=== PATIENT | female | born 1940 | race Caucasian/White ===

== ENCOUNTER 2020-01-01 08:48 | Outpatient (CLI) | payer MEDICARE, SELFPAY ==
--- NOTE | ~2020-01-01 | XR_ITS ---
EXAMINATION: XR chest 2V 01/01/2020 09:04 INDICATION: Shortness of breath. Dyspnea with exertion. PROCEDURE: PA and lateral views of the chest COMPARISON: Comparison to multiple prior studies sequentially, with oldest reviewed study dated 12/2011. FINDINGS: The lungs are clear. The cardiomediastinal silhouette is within normal limits. There are no pleural effusions. There is no pneumothorax suspected. There are cholecystectomy clips. IMPRESSION: 1: NO ACUTE CARDIOPULMONARY DISEASE. Reviewed, dictated and finalized at location A.
[2020-01-01 11:08] LABS: Basophils Absolute Auto 0.1 K/mm3 (0.0-0.1); Basophils Percent Auto 0.8 % (0.2-1.2); Eosinophils Absolute Auto 0.3 K/mm3 (0-0.3); Eosinophils Percent Auto 4.9 % (0-4.4); Hematocrit 38.8 % (37.0-47.0); Hemoglobin 12.6 g/dL (12.0-15.0); Immature Granulocyte Absolute 0.03 K/mm3 (0.00-0.031); Immature Granulocyte Percent A 0.5 % (0-0.5); Lymphocytes Absolute Auto 1.51 K/mm3 (0.9-3.2); Lymphocytes Percent Auto 24.9 % (18.3-44.2); Mean Corpuscular HGB Conc 32.5 g/dl (32-36); Mean Corpuscular Volume 98.5 fl (80-100); Monocytes Absolute Auto 0.5 K/mm3 (0.1-0.6); Monocytes Percent Auto 8.1 % (2.6-8.5); Neutrophils Absolute Auto 3.7 K/mm3 (1.3-6.7); Neutrophils Percent Auto 60.8 % (45.5-73.1); Platelet Count Result 218 k/mm3 (150-375); Red Blood Count 3.94 M/mm3 (4.2-5.4); Red Cell Distribution Width 13.8 % (11.5-14.5); White Blood Count 6.1 K/mm3 (4.5-10.0)
[2020-01-01 11:24] LABS: Blood Urea Nitrogen 22 mg/dL (7-17); Calcium 9.6 mg/dL (8.4-10.2); Carbon Dioxide 26 mmol/L (22-30); Chloride 107 mmol/L (98-107); Cholesterol 240 mg/dL (0-200); Estimated Glomerular Filt Rate 48; Glucose 99 mg/dL (65-105); HDL Direct 64 mg/dL; Potassium 4.3 mmol/L (3.4-5.0); Sodium 140 mmol/L (137-145); Triglycerides 132 mg/dL (<150)
[2020-01-01 11:35] LABS: LDL Cholesterol Direct 131 mg/dL
== END 2020-01-01 08:49 | disposition home or self-care (01) ==
PROVIDERS: PCP Family Medicine; Visit Provider Internal Medicine Cardiovascular Disease
DX: R06.09 Other forms of dyspnea (principal); R06.02 Shortness of breath; E78.5 Hyperlipidemia, unspecified
CPT/HCPCS: 36415; 71046; 80048; 80061; 85025

== ENCOUNTER 2020-01-04 12:20 | Outpatient (CLI) | payer MEDICARE, SELFPAY ==
--- NOTE | 2020-01-07 14:09 | WPDPFTINT ---
PFT Interpretation PFT Interpretation: DOS: 01/04/2020 REQUESTING: Dr. Dodd REASON FOR TESTING: Dyspnea on exertion PULMONARY FUNCTION TESTS Results are reproducible. Spirometry: FEV1 94%, normal. FVC 91%. FEV1% is 69%, mildly decreased however adjusted for age, this is normal. CAL41-78% is 45%, low. No bronchodilator was given. Lung volumes: TLC is 88%, normal. RV is 88%, normal. No air trapping. Airway resistance is 152%, mildly increased. Diffusion: DLCO is 72%, mildly decreased. Flow volume loop: Mild scooping of the expiratory limb. IMPRESSION: Mild airflow obstruction, mainly in the small airways. Mild increase in airway resistance. Mild diffusion impairment. A trial of bronchodilator can be considered. Sydney Lee MD
== END 2020-01-04 12:21 | disposition home or self-care (01) ==
PROVIDERS: PCP Family Medicine; Visit Provider Internal Medicine Cardiovascular Disease
DX: R06.09 Other forms of dyspnea (principal); R94.2 Abnormal results of pulmonary function studies
CPT/HCPCS: 94375; 94726; 94729

== ENCOUNTER 2020-05-16 09:33 | Outpatient (CLI) | payer MEDICARE, SELFPAY ==
--- NOTE | ~2020-05-16 | MM_ITS ---
EXAMINATION: MM screening maría BI w rosemary HISTORY: Screening mammogram TECHNIQUE: Craniocaudal and mediolateral oblique 3-D tomosynthesis images were obtained and synthetic 2-D images were generated. CAD analysis was submitted and interpreted. COMPARISON: 05/14/2019 bilateral digital screening mammogram 05/12/2018 diagnostic right digital mammogram and complete right breast ultrasound 05/09/2018, 05/06/2017 bilateral digital screening mammogram examinations BREAST PARENCHYMAL COMPOSITION: There are scattered areas of fibroglandular density. FINDINGS: Numerous bilateral benign calcifications are again noted. There is no evidence of suspiciou s mass, calcification, or architectural distortion to suggest malignancy in either breast. There has been no suspicious interval change. IMPRESSION: 1. No mammographic evidence of malignancy. 2. Recommend routine screening mammography in one year. BI-RADS Category 2: Benign finding(s). Reviewed, dictated and finalized at location A.
== END 2020-05-16 09:34 | disposition home or self-care (01) ==
LOC: ANHIMG 09:38
PROVIDERS: PCP Family Medicine; Visit Provider Family Medicine
DX: Z12.31 Encounter for screening mammogram for malignant neoplasm of breast (principal)
CPT/HCPCS: 77063; 77067

== ENCOUNTER 2021-06-16 10:12 | Outpatient (CLI) | payer MEDICARE, SELFPAY ==
--- NOTE | ~2021-06-16 | MM_ITS ---
EXAMINATION: MM screening maría BI w rosemary HISTORY: Screening mammogram TECHNIQUE: Craniocaudal and mediolateral oblique 3-D tomosynthesis images were obtained and synthetic 2-D images were generated. CAD analysis was submitted and interpreted. COMPARISON: 05/16/2020, 05/14/2019, 05/12/2018, 05/09/2018 BREAST PARENCHYMAL COMPOSITION: There are scattered areas of fibroglandular density. FINDINGS: Scattered benign-appearing calcifications are present. There is no evidence of suspicious m ass, calcification, or architectural distortion to suggest malignancy in either breast. There has bee n no suspicious interval change. IMPRESSION: 1. No mammographic evidence of malignancy. 2. Recommend routine screening mammography while the patient remains in good health. BI-RADS Category 2: Benign finding(s). Reviewed, dictated and finalized at location A. REDUCTION TECHNICIAN IMPRESSION: 1. No mammographic evidence of malignancy. 2. Recommend routine screening mammography while the patient remains in good he alth. BI-RADS Category 2: Benign finding(s).
== END 2021-06-16 10:13 | disposition home or self-care (01) ==
LOC: ANHIMG 10:15
PROVIDERS: PCP Family Medicine; Visit Provider Family Medicine
DX: Z12.31 Encounter for screening mammogram for malignant neoplasm of breast (principal)
CPT/HCPCS: 77063; 77067

== ENCOUNTER 2021-07-28 01:03 | Day surgery (SDC) | payer MEDICARE, SELFPAY ==
[2021-07-21 14:55] VITALS: BMI 26.5
--- NOTE | 2021-07-21 15:22 | PC.NURSE ---
Report to the Outpatient Waiting Room, entrance under the green pavilion located off [facility], at time _0900_ on date _07/28/20__. OR Time: ____1100____. - You and your visitor will be asked a series of questions to screen for COVID 19 for your protection. - A mask is required within the hospital. - NO visitors is allowed at this time. Patient visitors will be guided where to wait when not with patient. Preoperative COVID Testing Requirements: No COVID Test needed if: (proof is required; if not received patient will have Rapid Test prior to entry) - Patient has received COVID Vaccine at least 14 days prior to procedure date or - Patient has positive COVID test result within last 90 days of surgery date. COVID Test needed if above criteria is not met If not COVID vaccinated a COVID test must be conducted within 72 hours of surgery and patient is asked to isolate self from time of testing until procedure. You will go to the [facility] for your COVID testing. The [facility] site is located at the corner of [address] from [facility]. You will only be called if COVID results are positive and your surgeon may reschedule your elective surgery date. Patients may have clear liquids (water, carbonated beverages, clear teas, apple juice) until 3 hours prior to surgery with a maximum of 20 ounces. (0800 AM) - No food from midnight until time of surgery - Infants may have breast milk until 4 hours before surgery, infant formula 6 hours prior to surgery. - Children will be allowed to drink immediately following surgery. If applicable, please bring a bottle or sippy cup to assist with drinking. Juice, water, soda, and popsicles are readily available. For infants on formula, please bring formula the day of surgery. Pacifiers are allowed. Take the following medications with a SIP of water the morning of surgery: ____SOTALOL Medications to discontinue per physician __CALL DR DUENAS'S OFFICE REGARDING XARELTO Date to take last dose_FOR CALCIUM & VIT D3 - 07/24/21 Please no make-up, nail mauritian, hairspray, perfume, deodorant, or body powder the day of surgery. No jewelry (including any body piercings) or valuables the day of surgery, leave them at home. Please take a shower or bath the night before, or the morning of, surgery with an antibacterial soap. Wear comfortable, loose fitting clothing. Children are encouraged to wear pajamas. - Jewelry must be removed prior to entering the operating room. Rings and piercings that are not removed may be cut off. - The hospital will not accept responsibility for valuables. - Please leave all valuables, including medications, at home the day of surgery. If you are going home after surgery, a licensed stud driver must drive you home. - NO public transportation without another adult. - We recommend that an adult stay with you for 24 hours following discharge. - We also recommend that you do not drive, make important decision, drink alcoholic beverages, or take any drugs that were not prescribed by your health care provider for at least 24 hours after your discharge time. For Pediatric surgeries, we recommend two adults accompany the child home (only one inside the building at this time). Follow any additional instructions given to you from your surgeon. Telephone instructions given to ____PT and asked if any additional questions and then verbalized understanding. Patient advised to call surgeon office or pre surgery nurse liaison [phone] if any additional questions.
--- NOTE | 2021-07-27 09:51 | PM.IMHP ---
H&P: HPI History of Present Illness Date/Time: 07/27/21 09:51 Chief Complaint: Left nasal AVM left-sided epistaxis Narrative: patient presents for planned surgical procedure. No change in symptoms no change in history. Review of Systems Constitutional: Constitutional: Denies fatigue, Denies fever(s) and Denies lethargy Eyes: Eyes: Denies blurry vision and Denies change in vision ENT: Reports as per HPI Cardiovascular: Cardiovascular: Denies chest pain Respiratory: Respiratory: Denies cough Endocrine: Endocrine: Denies fatigue Hematologic/Lymphatic: Hematologic/Lymphatic: Denies easy bleeding, Denies easy bruising and Denies lymphadenopathy Allergic/Immunologic: Allergic/Immunologic: Denies seasonal rhinorrhea [facility] Past Medical History Medical History COPD (chronic obstructive pulmonary disease) Wellness examination Family History Family History Sibling Family history of emphysema Cerebrovascular accident Family history of coronary artery disease Mother Cerebrovascular accident Family history of Parkinson's disease Social History Social History Smoking packs per day: 1 Smoking cigarettes per day: 20.0 Years smoked: 30 Smoking pack-years: 30.00 Smoking status: Former smoker Tobacco type: cigarettes Second hand tobacco smoke exposure: No Smoking end date: 07/25/82 Alcohol intake: current Drinks per week: 7 Substance use: never Substance use type: does not use Living arrangements: with family Gender identity (if verbalized by the patient): Female Spiritual care concerns: No Meds Home Medications and Allergies Home Medications Medication Instructions Recorded Confirmed Type allopurinol 300 mg tablet 300 mg PO QAM 08/23/19 07/21/21 History calcium carbonate 600 mg calcium 600 mg PO QAM 08/23/19 07/21/21 History (1,500 mg) tablet cholecalciferol (vitamin D3) 25 25 mcg PO QAM 08/23/19 07/21/21 History mcg (1,000 unit) tablet sotalol 80 mg tablet 40 mg PO BID #30 tablet 08/23/19 07/21/21 Rx rivaroxaban 15 mg tablet 15 mg PO QPM #30 tablet 02/11/21 07/21/21 Rx ramipril 10 mg PO QAM 07/21/21 07/21/21 History Allergies Allergy/AdvReac Type Severity Reaction Status Date / Time ezetimibe Allergy Unknown muscle Verified 07/21/21 14:53 aches ibuprofen Allergy Unknown Nausea Verified 07/21/21 14:53 latex Allergy Unknown SKIN Verified 07/21/21 14:53 IRRATION naproxen Allergy Unknown Nausea Verified 07/21/21 14:53 simvastatin Allergy Unknown muscle Verified 07/21/21 14:53 aches Suufgco-EFK-CzV Reductase Allergy Unknown muscle Verified 07/21/21 14:53 Inhibitor aches [Ehkimzl-Iia-Tzv Reductase Inhibitor] atorvastatin AdvReac Severe ACHEY Verified 07/21/21 14:53 rosuvastatin AdvReac Severe ACHEY ALL Verified 07/21/21 14:53 OVER Contrast Media Allergy Severe Rash Uncoded 07/21/21 14:53 FRIED FOODS Allergy Severe SWELLING, Uncoded 07/21/21 14:53 SOB Mold (Blue) Cheese Allergy Severe THROAT Uncoded 07/21/21 14:53 SWELLING, ITCHY, COUGH Potato Allergy Severe SOB, Uncoded 07/21/21 14:53 COUGHING, ITCHING POTPOURRI Allergy Severe SWELLING Uncoded 07/21/21 14:53 AND SOB SCENTED CANDLES Allergy Severe SWELLING Uncoded 07/21/21 14:53 AND SOB Exam Const: General: cooperative, healthy appearing, comfortable, well developed and alert HENMT: Head: normal to inspection, normocephalic and atraumatic Ears: hearing grossly normal bilaterally, external ears normal, TM's normal bilaterally and EAC's normal General nose exam: Normal external nose present, Normal nares present, No nasal polyps present, Normal nasal mucous membranes and turbinates present and Normal septum present Face and sinus: normal facial exam Mouth: Yes Normal
--- NOTE | 2021-07-27 12:28 | WPDANESEPPF ---
Anes - Initial Pre Proc Eval Procedure: Operation Date: 07/28/21 11:00 Proposed Procedures p Bilateral Nasal Endoscopy with Cautery of Left Side - Aubrey Mancera MD Date/Time: 07/27/21 12:28 Surgeon: Aubrey Mancera MD Pre Op Diagnosis: epistaxsis Patient Data Age: 81 Gender: F Height: 1.57 m Weight: 65.9 kg Allergies Allergy/AdvReac Type Severity Reaction Status Date / Time ezetimibe Allergy Unknown muscle Verified 07/28/21 09:48 aches ibuprofen Allergy Unknown Nausea Verified 07/28/21 09:48 latex Allergy Unknown SKIN Verified 07/28/21 09:48 IRRATION naproxen Allergy Unknown Nausea Verified 07/28/21 09:48 simvastatin Allergy Unknown muscle Verified 07/28/21 09:48 aches Ctcmtmy-RXC-SuE Reductase Allergy Unknown muscle Verified 07/28/21 09:48 Inhibitor aches [Gpyuuyj-Scw-Cnp Reductase Inhibitor] atorvastatin AdvReac Severe ACHEY Verified 07/28/21 09:48 rosuvastatin AdvReac Severe ACHEY ALL Verified 07/28/21 09:48 OVER Contrast Media Allergy Severe Rash Uncoded 07/28/21 09:48 FRIED FOODS Allergy Severe SWELLING, Uncoded 07/28/21 09:48 SOB Mold (Blue) Cheese Allergy Severe THROAT Uncoded 07/28/21 09:48 SWELLING, ITCHY, COUGH Potato Allergy Severe SOB, Uncoded 07/28/21 09:48 COUGHING, ITCHING POTPOURRI Allergy Severe SWELLING Uncoded 07/28/21 09:48 AND SOB SCENTED CANDLES Allergy Severe SWELLING Uncoded 07/28/21 09:48 AND SOB Home Medications Medication Instructions Recorded Confirmed Type allopurinol 300 mg tablet 300 mg PO QAM 08/23/19 07/28/21 History calcium carbonate 600 mg calcium 600 mg PO QAM 08/23/19 07/28/21 History (1,500 mg) tablet cholecalciferol (vitamin D3) 25 25 mcg PO QAM 08/23/19 07/28/21 History mcg (1,000 unit) tablet sotalol 80 mg tablet 40 mg PO BID #30 tablet 08/23/19 07/28/21 Rx rivaroxaban 15 mg tablet 15 mg PO QPM #30 tablet 02/11/21 07/28/21 Rx ramipril 10 mg PO QAM 07/21/21 07/28/21 History Patient hx anesthesia problems: none Family hx anesthesia problems: none Results Review: All pre-operative results and documents have been reviewed as part of the pre-operative evaluation. [facility] Past Medical History Medical History (Updated 07/27/21 @ 12:29 by Sriram Bowden DO) Chronic atrial fibrillation Chronic kidney disease with active medical management without dialysis, stage 3 (moderate) COPD (chronic obstructive pulmonary disease) Pure hypercholesterolemia Wellness examination Family History Family History Sibling Family history of emphysema Cerebrovascular accident Family history of coronary artery disease Mother Cerebrovascular accident Family history of Parkinson's disease Social History Social History Smoking packs per day: 1 Smoking cigarettes per day: 20.0 Years smoked: 30 Smoking pack-years: 30.00 Smoking status: Former smoker Tobacco type: cigarettes Second hand tobacco smoke exposure: No Smoking end date: 07/25/82 Alcohol intake: current Drinks per week: 7 Substance use: never Substance use type: does not use Living arrangements: with family Gender identity (if verbalized by the patient): Female Spiritual care concerns: No Anes - Eval Final PreProcedure Day of Procedure 07/27/21 12:28 Patient weight: overweight Heart: regular rate and rhythm Lungs: clear to auscultation and normal air movement Airway: Mallampati scale class II Neurological: alert and oriented Last oral intake: >/= 8 hours ASA classification: III Emergent: no Anesthetic plan: proceed Anesthesia type and monitoring: general ETT and standard monitoring Results Review: All pre-operative results and documents have been reviewed as part of the pre-operative evaluation. Informed Consent: The patient's anesthetic plan and its attendant risks and benefits w
[2021-07-28] VITALS (8 sets, daily range): BP systolic 97–152; BP diastolic 43–79; PULSE 68–110; RESP 16–18; TEMP 36.3–36.6; O2SAT 100
--- NOTE | 2021-07-28 07:16 | WPDHPUPDATE1 ---
History and Physical Update Update Date/Time: 07/28/21 07:16 History and Physical has been reviewed, including an updated exam of the patient. There are NO changes in the patient's condition. Risks, benefits, and alternatives have been discussed and questions answered. Patient agrees to proceed with procedure.
[2021-07-28] MEDS: LACTATED RINGERS 1,000 ML 30 ML IV CONT (09:28)
[2021-07-28] MEDS: ACETAMINOPHEN 500 MG TABLET 1000 MG PO (10:09)
[2021-07-28] MEDS: OXYMETAZOLINE HCL 0.05% NAS 15 ML BTL (*BKC) 1 SPRAY NASAL (10:25)
--- NOTE | 2021-07-28 10:52 | P.OP_ITS ---
Procedure Note - Detailed Date of Procedure 07/28/21 Pre-op Diagnosis epistaxsis Post-op Diagnosis same Procedure Performed Bilateral nasal endoscopy with some Bovie suction electrocautery of the left- sided vessel Surgeon Aubrey Mancera MD Anesthesia general Indications See above Findings Large left-sided vessel lateral nasal wall cauterized with Bovie suction electrocautery at a setting of 10. No obvious intraoperative complications Description of Procedure Patient correctly identified consent verified. Patient brought operating room. Time-out performed. Patient prepped and draped for aforementioned procedure. Second time-out performed. 0 degree endoscope utilized large telangiectatic nest of vessels with 1 large feeding vessel located lateral nasal wall cauterized with Bovie suction electrocautery at a setting of 10 this was roughed up in an attempt to get it to bleed again it did not bleed small amount of NasoPore packing placed over. Patient tolerated the procedure well. No complications blood loss 1 cc I performed all dictated portions care the patient was turned over to Anesthesiology. Estimated Blood Loss 1 Drains No Packing Yes Pathology none sent Complications No immediate complications Condition stable Disposition PACU
== END 2021-07-28 12:40 | disposition home or self-care (01) ==
PROVIDERS: PCP Family Medicine; Visit Provider Otolaryngology
PROC: (CPT 31238; principal; 2021-07-28 11:00)
DX: R04.0 Epistaxis (principal); I48.20 Chronic atrial fibrillation, unspecified; J44.9 Chronic obstructive pulmonary disease, unspecified; N18.30 Chronic kidney disease, stage 3 unspecified; E78.00 Pure hypercholesterolemia, unspecified; Z79.01 Long term (current) use of anticoagulants; Z87.891 Personal history of nicotine dependence
CPT/HCPCS: 31238; A9270; J0330; J1100; J2405; J2704; J3010; J7120

== ENCOUNTER 2022-04-09 09:43 | Outpatient (CLI) | payer MEDICARE, SELFPAY ==
--- NOTE | ~2022-04-09 | DEXA_ITS ---
Bone Density Report Name: HUY MENARD Age: 82 Sex: Female Ethnicity: White Date of : 1940 Indication: postmenopausal; screening for osteoporosis; height loss; Referring Provider: SHANE MEMBRENO Study: Bone densitometry was performed. Exam Date: April 09, 2022 Accession number: [id number] Bone Density: Region BMD T-score Z-score Classification AP Spine(L1-L4) 1.288 2.2 5.0 Normal Femoral Neck (Left) 0.631 -2.0 0.5 Osteopenia Total Hip (Left) 0.783 -1.3 0.9 Osteopenia Femoral Neck (Right) 0.691 -1.4 1.0 Osteopenia Total Hip (Right) 0.771 -1.4 0.8 Osteopenia Total Hip Mean 0.777 -1.4 0.9 Osteopenia World Health Organization criteria for BMD impression classify patients as: Normal (T-score at or above -1.0), Osteopenia (T-score between -1.0 and -2.5), or Osteoporosis (T-score at or below -2.5). 10-year Fracture Risk(1): Major Osteoporotic Fracture 15% Hip Fracture 4.4% Reported Risk Factors: [place] (), Neck BMD=0.631, BMI=30.6 (1) FRAX(R) Version 3.08. Fracture probability calculated for an untreated patient. Fracture probability may be lower if the patient has received treatment. Clinical Information Provided by Patient: Has used the following medications: Vitamin D, Calcium Patient maximum height was 62 Menopause Age: 49 No regular weight bearing exercise Onset of menses at age 13 Number of children 1 Impression: The patient has low bone mass, based on the Left Femoral Neck T-score. The patient has an estimated ten-year risk of hip fracture of 4.4% and an estimated ten-year risk of major fracture of 15%, based on the WHO FRAX algorithm. Discussion: BONE DENSITY IS LOW AT ONE OR MORE SKELETAL SITES. THE PATIENT'S BMD AND CLINICAL RISK FACTORS CONTRIBUTE TO THIS PATIENT'S INCREASED RISK OF FRACTURE. This patient's lowest T-score is low at one or more skeletal sites. It meets the World Health Organization's (WHO) criteria for ?low bone mass? (T-score between -1.0 and -2.5). The patient's 10-year risk of hip fracture as calculated by FRAX exceeds the threshold where pharmacological therapy is recommended by the National Osteoporosis Foundation (NOF). However, all treatment decisions require clinical judgment and consideration of individual patient factors, including patient preferences, comorbidities, previous drug use, risk factors not captured in the FRAX model (e.g., frailty, falls, vitamin D deficiency, increased bone turnover, interval significant decline in bone density) and possible under or overestimation of fracture risk by FRAX. The patient should follow a healthful lifestyle (good nutrition with adequate calcium and vitamin D, and appropriate weight-bearing exercise). Follow-Up: Consider a repeat BMD and Vertebral Fracture Assessment
== END 2022-04-09 09:44 | disposition home or self-care (01) ==
PROVIDERS: PCP Family Medicine; Visit Provider Family Medicine
DX: Z78.0 Asymptomatic menopausal state (principal); M85.852 Other specified disorders of bone density and structure, left thigh; M85.851 Other specified disorders of bone density and structure, right thigh
CPT/HCPCS: 77080

== ENCOUNTER 2024-03-30 10:18 | Emergency (ER) | payer MEDICARE, SELFPAY ==
--- NOTE | ~2024-03-30 | CT_ITS ---
Noncontrast CT scan of the cervical spine Technique: Multiple contiguous axial [address] images of the cervical spine were obtained and rec onstructed in 2D sagittal and coronal planes on the acquisition scanner. Dose reduction technique was used on this scan by utilizing automated exposure control, adjustment of the mA and/or kV according to patient size. The dose-length product (DLP) was 375.86 mGy-cm. Clinical History: Pain Findings: No acute fracture. There is minimal grade 1 anterolisthesis of C6 over C7. There is 3 mm an terolisthesis of C7 over T1. There is moderate to advanced degenerative disc narrowing at C5-C6. Ther e is moderate degenerative disc narrowing at C4-C5 and C6-C7. There are moderate to advanced facet raffaele int degenerative changes throughout the cervical spine. No prevertebral soft tissue swelling. Impression: No acute fracture. 3 mm anterolisthesis of C7 over T1. Minimal grade 1 anterolisthesis of C6 over C7. Degenerative change, as above. Reviewed, dictated and finalized at [facility]. Impression: No acute fracture. 3 mm anterolisthesis of C7 over T1. Minimal grade 1 anterolisthesis of C6 over C7. Degenerative change, as above.
--- NOTE | ~2024-03-30 | CT_ITS ---
CT head without contrast Indication: Status post fall Technique: Serial scans were obtained through the brain without the administration of contrast. Dose reduction technique was used on this scan by utilizing automated exposure control and iterative recon struction technique. The dose-length product (DLP) was 605.33 mGy-cm. Findings: There is no evidence of intracranial hemorrhage, mass lesion, or acute infarct. The ventri cles and subarachnoid spaces are dilated, consistent with mild to moderate atrophy. Low attenuation regions are seen within the periventricular white matter bilaterally, likely representing changes fro m chronic microvascular ischemic disease. There is no evidence of edema, mass effect or midline shif t. The visualized paranasal sinuses and mastoid air cells are clear. There is soft tissue swelling/h ematoma at the high posterior scalp. Impression: No intracranial hemorrhage, mass, or acute infarct. Atrophy and chronic white matter changes, as above. Soft tissue swelling/hematoma at the posterior scalp, as above. Reviewed, dictated and finalized at location . Impression: No intracranial hemorrhage, mass, or acute infarct. Atrophy and chronic white matter changes, as above. Soft tissue swelling/hematoma at the posterior scalp, as above.
[2024-03-30 10:12] VITALS: BP 138/106; PULSE 90; RESP 15; TEMP 36.8; O2SAT 100
[2024-03-30 11:28] VITALS: BP 141/104; PULSE 97; RESP 22; O2SAT 100
[2024-03-30 13:07] VITALS: BP 129/66; PULSE 84; RESP 23; O2SAT 97
--- NOTE | 2024-03-30 15:06 | ED.FALL ---
HPI - Fall General Chief Complaint: Fall Stated Complaint: fall, head injury, on blood thinner Time Seen by Provider: 03/30/24 10:25 History of Present Illness HPI Narrative: This is an 84-year-old female with a past medical history significant for hypertension, hyperlipidemia, CKD, chronic AFib on Eliquis. Patient today had a ground level mechanical fall while at her halfway facility. Patient states that she was trying to ambulate and lost balance and hit the back of her head. She did not lose consciousness in presently states she is feeling in her normal state of health without any headache, vision changes, neck pain. She normally ambulates relatively unassisted. A&O x2 at baseline. She did take her Eliquis dose this morning. No other anticoagulants. Related Data Home Medications Medication Instructions Recorded Confirmed allopurinol 300 mg tablet 300 mg PO QAM 08/23/19 03/28/24 calcium carbonate (Calcium 600) 600 mg PO QAM 08/23/19 03/28/24 cholecalciferol (vitamin D3) 25 25 mcg PO QAM 08/23/19 03/28/24 mcg (1,000 unit) tablet Allergies Allergy/AdvReac Type Severity Reaction Status Date / Time ezetimibe Allergy Unknown muscle Verified 03/30/24 11:29 aches ibuprofen Allergy Unknown Nausea Verified 03/30/24 11:29 latex Allergy Unknown SKIN Verified 03/30/24 11:29 IRRATION naproxen Allergy Unknown Nausea Verified 03/30/24 11:29 simvastatin Allergy Unknown muscle Verified 03/30/24 11:29 aches Qojwxdf-WGQ-QbU Reductase Allergy Unknown muscle Verified 03/30/24 11:29 Inhibitor aches [Eanxdnz-Hwb-Dir Reductase Inhibitor] atorvastatin AdvReac Severe ACHEY Verified 03/30/24 11:29 rosuvastatin AdvReac Severe ACHEY ALL Verified 03/30/24 11:29 OVER Contrast Media Allergy Severe Rash Uncoded 03/30/24 11:29 FRIED FOODS Allergy Severe SWELLING, Uncoded 03/30/24 11:29 SOB Mold (Blue) Cheese Allergy Severe THROAT Uncoded 03/30/24 11:29 SWELLING, ITCHY, COUGH Potato Allergy Severe SOB, Uncoded 03/30/24 11:29 COUGHING, ITCHING POTPOURRI Allergy Severe SWELLING Uncoded 03/30/24 11:29 AND SOB SCENTED CANDLES Allergy Severe SWELLING Uncoded 03/30/24 11:29 AND SOB Review of Systems Review of Systems: As reviewed above in [facility] Past Medical History Medical History Chronic atrial fibrillation Chronic kidney disease with active medical management without dialysis, stage 3 (moderate) COPD (chronic obstructive pulmonary disease) Pure hypercholesterolemia Wellness examination Family History Family History Sibling Family history of emphysema Cerebrovascular accident Family history of coronary artery disease Mother Cerebrovascular accident Family history of Parkinson's disease Social History Social History Smoking packs per day: 1 Smoking cigarettes per day: 20.0 Years smoked: 30 Smoking pack-years: 30.00 Smoking status: Former smoker Tobacco type: cigarettes Second hand tobacco smoke exposure: No Smoking end date: 07/25/82 Alcohol intake: current Drinks per week: 7 Substance use: never Substance use type: does not use Living arrangements: with family Occupation/Education: retired Gender identity (if verbalized by the patient): Female Sexual Orientation (if Verbalized by the Patient): Straight or Heterosexual Spiritual care concerns: No Exam Narrative: GENERAL: [Well-appearing, well-nourished, and in no acute distress.] Awake and answering questions appropriately. HEAD: Normocephalic but evidence of a scalp hematoma on the posterior occipital region without any active bleeding. There appears to be some dried blood around it and a patch of some macerated tissue without any obvious laceration or repairable dem
[2024-03-30 16:27] VITALS: BP 136/59; PULSE 91; RESP 25; TEMP 36.9; O2SAT 96
[2024-03-30 17:37] VITALS: BP 141/55; PULSE 96; RESP 23; O2SAT 98
[2024-03-30 19:09] VITALS: BP 120/48; PULSE 62; RESP 15; O2SAT 96
--- NOTE | 2024-03-30 19:14 | PC.NURSE ---
Report given to Roseanne CONCEPCION, all questions answered
== END 2024-03-30 20:35 ==
PROVIDERS: Emergency Provider Student in an Organized Health Care Education/Training Program; PCP Family Medicine
DX: S01.01XA Laceration without foreign body of scalp, initial encounter (principal); S09.90XA Unspecified injury of head, initial encounter; W18.39XA Other fall on same level, initial encounter; I12.9 Hypertensive chronic kidney disease with stage 1 through stage 4 chronic kidney disease, or unspecified chronic kidney disease; N18.30 Chronic kidney disease, stage 3 unspecified; J44.9 Chronic obstructive pulmonary disease, unspecified; E78.5 Hyperlipidemia, unspecified; I48.20 Chronic atrial fibrillation, unspecified; Z79.01 Long term (current) use of anticoagulants; Z87.891 Personal history of nicotine dependence
CPT/HCPCS: 12001; 70450; 72125; 99284; L0140

== ENCOUNTER 2024-05-02 14:11 | Inpatient (IN) | payer MEDICARE, SELFPAY ==
[2024-05-02] VITALS (20 sets, daily range): BP systolic 99–126; BP diastolic 50–93; PULSE 69–88; RESP 12–29; TEMP 36.4–36.7; O2SAT 97–100; BMI 27.7
--- NOTE | ~2024-05-02 | US_ITS ---
EXAMINATION: US venous doppler [facility] DATE: 05/03/2024 11:37 INDICATION: Lower limb edema. TECHNIQUE: Grayscale ultrasound images without and with compression and Doppler ultrasound images of the bilateral lower extremity veins were obtained. COMPARISON: None. FINDINGS: The visualized portions of right common femoral vein, profunda (deep) femoral vein, femoral vein, pop liteal vein, peroneal veins, posterior tibial veins, and greater saphenous vein outflow are patent. The visualized portions of left common femoral vein, profunda femoral vein, femoral vein, popliteal v ein, peroneal veins, posterior tibial veins, and greater saphenous vein outflow are patent. The left lower limb, there is a 5.1 x 1.0 x 2.8 cm hypoechoic mass, likely a hematoma. IMPRESSION: 1. No deep venous thrombosis. 2. Hematoma in the left lower limb. Reviewed, dictated and finalized at location A.
--- NOTE | ~2024-05-02 | XR_ITS ---
CHEST RADIOGRAPH CLINICAL HISTORY: Ocassionally SOB . COMPARISON: 01/11/2020 TECHNIQUE: Single portable view of the chest. FINDINGS The cardiomediastinal silhouette is enlarged, unchanged. Peribronchial thickening is identified, an interval change from prior. The lungs are clear. Visualized osseous structures and soft tissues are unremarkable. IMPRESSION: Peribronchial thickening, without focal infiltrate or effusion. Reviewed, dictated and finalized at location A.
--- NOTE | ~2024-05-02 | US_ITS ---
EXAMINATION: US renal BI DATE: 05/03/2024 11:41 INDICATION: Acute on chronic renal failure. TECHNIQUE: Multiple ultrasound grayscale images of the kidneys were obtained. COMPARISON: CT abdomen 08/12/2014 FINDINGS: The right kidney measures 8.4 x 4.8 x 5.0 cm. The left kidney measures 10.1 x 4.1 x 3.8 cm. The kidne ys demonstrate increased parenchymal echogenicity, consistent with nonspecific nephropathy. There is a 1.4 cm cyst in right kidney. There is no hydronephrosis. The bladder is normal. IMPRESSION: 1. Mild atrophy of right kidney. No hydronephrosis. 2. Increased renal parenchymal echogenicity, consistent with nonspecific nephropathy. Reviewed, dictated and finalized at location A. IMPRESSION: 1. Mild atrophy of right kidney. No hydronephrosis. 2. Increased renal parenchymal echogenicity, consistent with nonspecific nephro hung.
[2024-05-02 16:57] LABS: Basophils Percent Auto 0.7 % (0.2-1.2); Eosinophils Absolute Auto 0.2 K/mm3 (0-0.3); Eosinophils Percent Auto 3.4 % (0-4.4); Hematocrit 35.6 % (37.0-47.0); Hemoglobin 11.7 g/dL (12.0-15.0); Immature Granulocyte Absolute 0.01 K/mm3 (0.00-0.031); Immature Granulocyte Percent A 0.2 % (0-0.5); Lymphocytes Absolute Auto 1.57 K/mm3 (0.9-3.2); Lymphocytes Percent Auto 28.4 % (18.3-44.2); Mean Corpuscular HGB Conc 32.9 g/dl (32-36); Mean Corpuscular Hemoglobin 32.7 pg (26-34); Mean Corpuscular Volume 99.4 fl (80-100); Mean Platelet Volume 9.5 fl (7.4-10.4); Monocytes Absolute Auto 0.7 K/mm3 (0.1-0.6); Neutrophils Absolute Auto 3.1 K/mm3 (1.3-6.7); Neutrophils Percent Auto 55.3 % (45.5-73.1); Platelet Count Result 219 k/mm3 (150-375); Red Blood Count 3.58 M/mm3 (4.2-5.4); Red Cell Distribution Width 13.3 % (11.5-14.5); White Blood Count 5.5 K/mm3 (4.5-10.0)
[2024-05-02 17:07] LABS: INR 1.7; Prothrombin Time 20.7 Seconds (11.1-14.7)
[2024-05-02 17:08] LABS: Partial Thromboplastin Time 38.6 Seconds (22.3-36.8)
[2024-05-02 17:12] LABS: Alanine Aminotransferase 8 U/L (6-35); Albumin Level 3.8 g/dL (3.5-5.1); Alkaline Phosphatase 70 U/L (38-126); Anion Gap 7 mmol/L (4-12); Aspartate Amino Transferase 18 U/L (14-36); Bilirubin,Total 0.8 mg/dL (0.2-1.3); Blood Urea Nitrogen 42 mg/dL (7-17); Calcium 9.5 mg/dL (8.4-10.2); Carbon Dioxide 29 mmol/L (22-30); Chloride 102 mmol/L (98-107); Estimated CRCL calculation 21 ml/min; Estimated Glomerular Filt Rate 29; Glucose 98 mg/dL (65-110); Sodium 138 mmol/L (137-145)
[2024-05-02 17:35] LABS: NT Pro B Type Natriuretic Pept 1370 pg/mL (19.9-100)
[2024-05-02 17:44] LABS: Add Urine Microscopic? YES; Appearance Urine Clear (Clear); Bacteria Urine None Seen /hpf; Bilirubin Urine Negative (Negative); Blood Urine Negative (Negative); Color Urine Yellow (Yellow); Glucose Urine UA Negative (Negative); Ketones Urine Negative (Negative); Leukocyte Esterase Ur 1+ LEU/UL (Negative); Nitrate Urine Negative (Negative); Non Pathogenic Casts 0-2; Protein Urine Negative (Negative); RBC Urine 0-2 /hpf (0-2); Specific Grav Ur 1.007 (1.001-1.035); Squamous Epithelial Cell Urine Occasional /hpf (Few); Urobilinogen Urine 0.2 mg/dL (<2.0); pH Urine 7.5 (5.0-9.0)
--- NOTE | 2024-05-02 18:57 | ED.RECABL ---
HPI - Recheck/Abnormal Lab/Rx General Chief Complaint: Recheck/Abnormal Lab/Rx Stated Complaint: edema Time Seen by Provider: 05/02/24 16:29 Source: patient Mode of arrival: ambulatory Limitations: no limitations History of Present Illness HPI narrative: This is an 84-year-old female, with history of COPD AFib, on repeat Xarelto, who presents to the emergency department complaining of bilateral lower extremity edema, despite diuretics. Patient states she was started on Lasix by her primary care provider. She was initially increased from 20 mg to 40 mg daily. She was told by her primary care doctor that her kidney function had worsened and was reduced back to 20 mg. She denies difficulty breathing or chest pain. She notes the legs have been weeping, though denies fevers, chills or spreading redness. She has no other complaints at this time. Related Data Home Medications Medication Instructions Recorded Confirmed allopurinol 300 mg tablet 300 mg PO QAM 08/23/19 04/17/24 calcium carbonate (Calcium 600) 600 mg PO QAM 08/23/19 04/17/24 cholecalciferol (vitamin D3) 25 25 mcg PO QAM 08/23/19 04/17/24 mcg (1,000 unit) tablet Allergies Allergy/AdvReac Type Severity Reaction Status Date / Time ezetimibe Allergy Unknown muscle Verified 04/17/24 14:05 aches ibuprofen Allergy Unknown Nausea Verified 04/17/24 14:05 latex Allergy Unknown SKIN Verified 04/17/24 14:05 IRRATION naproxen Allergy Unknown Nausea Verified 04/17/24 14:05 simvastatin Allergy Unknown muscle Verified 04/17/24 14:05 aches Rylmdlh-YHJ-LkH Reductase Allergy Unknown muscle Verified 04/17/24 14:05 Inhibitor aches [Gwnggty-Wmc-Jxg Reductase Inhibitor] atorvastatin AdvReac Severe ACHEY Verified 04/17/24 14:05 rosuvastatin AdvReac Severe ACHEY ALL Verified 04/17/24 14:05 OVER Contrast Media Allergy Severe Rash Uncoded 04/17/24 14:05 FRIED FOODS Allergy Severe SWELLING, Uncoded 04/17/24 14:05 SOB Mold (Blue) Cheese Allergy Severe THROAT Uncoded 04/17/24 14:05 SWELLING, ITCHY, COUGH Potato Allergy Severe SOB, Uncoded 04/17/24 14:05 COUGHING, ITCHING POTPOURRI Allergy Severe SWELLING Uncoded 04/17/24 14:05 AND SOB SCENTED CANDLES Allergy Severe SWELLING Uncoded 04/17/24 14:05 AND SOB Review of Systems Review of Systems: All systems reviewed & are unremarkable except as noted in HPI and below PMFSH Past Medical History Medical History Chronic atrial fibrillation Chronic kidney disease with active medical management without dialysis, stage 3 (moderate) CKD (chronic kidney disease), stage III COPD (chronic obstructive pulmonary disease) Pure hypercholesterolemia Wellness examination Family History Family History Sibling Family history of emphysema Cerebrovascular accident Family history of coronary artery disease Mother Cerebrovascular accident Family history of Parkinson's disease Social History Social History Smoking packs per day: 1 Smoking cigarettes per day: 20.0 Years smoked: 30 Smoking pack-years: 30.00 Smoking status: Former smoker Tobacco type: cigarettes Second hand tobacco smoke exposure: No Smoking end date: 07/25/82 Alcohol intake: current Drinks per week: 7 Substance use: never Substance use type: does not use Living arrangements: with family Occupation/Education: retired Gender identity (if verbalized by the patient): Female Sexual Orientation (if Verbalized by the Patient): Straight or Heterosexual Spiritual care concerns: No Exam Narrative: GENERAL: Well-developed, well-nourished, and in no acute distress. HEAD: Normocephalic, atraumatic. EYES: PERRLA and EOMI. NECK: Supple. No JVD CHEST: Clear to auscultation. No respiratory distress. No wheezes ra
--- NOTE | 2024-05-02 20:20 | PM.IMHP ---
H&P: HPI History of Present Illness Date/Time: 05/02/24 20:20 Chief Complaint: Lower extremity edema. Narrative: This is a pleasant 84-year-old female with chronic atrial fibrillation on anticoagulation, hypertension, and chronic kidney disease who presented to the emergency department for evaluation of lower extremity edema. She is a fair historian and seems to have some short-term memory loss and assets from the following history is obtained via a review of her EMR. She saw Dr. Lamas in the office on 03/28/2024 with complaints of bilateral lower extremity swelling for about a week or so. She was prescribed furosemide 20 mg and was seen in follow-up 5 days thereafter at which time she stated the swelling had not improved. Furosemide dose was doubled and she was also started on potassium supplementation. She began to monitor her salt intake and started to notice improvement in the swelling at follow-up appointment 2 weeks later. Creatinine bumped on labs and furosemide does was cut in half. Unfortunately her swelling is worse and legs are now weeping. She admits that she is very sedentary with dependent legs. She has no known history of congestive heart failure, obstructive sleep apnea, or deep venous thrombosis. She also denies fever, chills, sweats, chest pain, palpitations, orthopnea, paroxysmal nocturnal dyspnea, nausea, vomiting, and calf pain. She has not noticed a change in urine output. In the ED: She was afebrile on arrival. Blood pressure has been as low as 99/63. Labs were significant for a WBC count of 5.5, hemoglobin 11.7, INR 1.7, BUN 42, creatinine 1.70, proBNP 1370. Chest x-ray showed peribronchial thickening without focal infiltrate or effusion. She is being admitted in this setting for evaluation of acute kidney injury and increasing lower extremity edema. Review of Systems Review of Systems: 12 systems were reviewed and are negative except for as per HPI. 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 History of temporal artery biopsy (12/2013) left Family History Family History Sibling Family history of emphysema Cerebrovascular accident Family history of coronary artery disease Mother Cerebrovascular accident Family history of Parkinson's disease Social History Social History (Updated 05/02/24 @ 22:07 by Juliana Fernandes PA-C) Social History: Surrogate medical decision maker: Castillo James, spouse. Code status: Do not resuscitate. Smoking packs per day: 1 Smoking cigarettes per day: 20.0 Years smoked: 60 Smoking pack-years: 60.00 Smoking status: Former smoker Tobacco type: cigarettes Second hand tobacco smoke exposure: No Smoking end date: 07/25/82 Alcohol intake: current Drinks per week: 7 Substance use: never Substance use type: does not use Do You Feel Safe in your Home?: Yes Lack of Transportation: No Lack of Food: Never True Current Housing: I Have Housing Concerned About Future Housing: No Difficulty Paying Gas/Electric Bills: No Difficulty Paying for Meds: No Currently Unemployed: No Education: Bachelor's Degree Difficulty w/ Childcare or Family Care: No Living arrangements: assisted living Additional living arrangements comments: She and her recentl
--- NOTE | 2024-05-02 21:07 | ADMGEN ---
This patient, Michelle James, was admitted to Medical Room 247-. Patient/family oriented to hospital policies and general routines including ID bracelet, bed and alarms, visiting hours, pain management, procedures, bathroom and other care routines, personal items, smoking policy, room service/diet, and visiting hours. Information on how to activate the Rapid Response Team has been discussed. Patient/Family are encouraged to report perceived risks to care and to ask questions if they do not understand what they are told or what they should do.
--- NOTE | 2024-05-02 21:17 | PC.NURSE ---
Admission done with patient assistance and facility paperwork.
[2024-05-02] MEDS: SOTALOL HCL 40 MG TABLET PO (23:18)
[2024-05-02] MEDS: LACTATED RINGERS 1,000 ML 75 ML IV CONT (23:18)
[2024-05-02] MEDS: RIVAROXABAN 15 MG TABLET PO (23:18)
[2024-05-03] VITALS (12 sets, daily range): BP systolic 106–124; BP diastolic 28–66; PULSE 59–82; RESP 18–20; TEMP 36.4–36.9; O2SAT 99–100
[2024-05-03 07:19] LABS: Basophils Percent Auto 0.5 % (0.2-1.2); Eosinophils Absolute Auto 0.2 K/mm3 (0-0.3); Hematocrit 33.6 % (37.0-47.0); Hemoglobin 10.7 g/dL (12.0-15.0); Immature Granulocyte Absolute 0.02 K/mm3 (0.00-0.031); Immature Granulocyte Percent A 0.3 % (0-0.5); Lymphocytes Absolute Auto 1.42 K/mm3 (0.9-3.2); Lymphocytes Percent Auto 24.8 % (18.3-44.2); Mean Corpuscular HGB Conc 31.8 g/dl (32-36); Mean Corpuscular Hemoglobin 31.8 pg (26-34); Mean Corpuscular Volume 99.7 fl (80-100); Mean Platelet Volume 9.6 fl (7.4-10.4); Monocytes Absolute Auto 0.6 K/mm3 (0.1-0.6); Monocytes Percent Auto 11.2 % (2.6-8.5); Neutrophils Absolute Auto 3.4 K/mm3 (1.3-6.7); Neutrophils Percent Auto 60.2 % (45.5-73.1); Platelet Count Result 204 k/mm3 (150-375); Red Blood Count 3.37 M/mm3 (4.2-5.4); Red Cell Distribution Width 13.3 % (11.5-14.5); White Blood Count 5.7 K/mm3 (4.5-10.0)
[2024-05-03 07:38] LABS: Anion Gap 6 mmol/L (4-12); Blood Urea Nitrogen 34 mg/dL (7-17); Carbon Dioxide 27 mmol/L (22-30); Chloride 105 mmol/L (98-107); Estimated CRCL calculation 24 ml/min; Estimated Glomerular Filt Rate 36; Glucose 103 mg/dL (65-110); Magnesium 2.2 mg/dL (1.6-2.3); Potassium 4.3 mmol/L (3.4-5.0); Sodium 138 mmol/L (137-145)
[2024-05-03] MEDS: SOTALOL HCL 40 MG TABLET PO ×2 (09:11→20:41)
[2024-05-03] MEDS: PSYLLIUM POWDER PACKET 1 PACKET PO (09:11)
[2024-05-03] MEDS: CHOLECALCIFEROL 1,000 UNITS TABLET 1000 UNITS PO (09:12)
--- NOTE | 2024-05-03 14:32 | PM.IMPN ---
Progress Note: A&P Assessment and Plan (1) Acute on chronic kidney failure: Qualifiers: Acute renal failure type: unspecified Chronic kidney disease stage: unspecified stage Qualified Code(s): N17.9 - Acute kidney failure, unspecified; N18.9 - Chronic kidney disease, unspecified Code(s): N17.9 - Acute kidney failure, unspecified; N18.9 - Chronic kidney disease, unspecified Status: Acute Assessment and Plan: Avoid nephrotoxic medication Monitor I&O Monitor lab work BUN today 34 and creat. 1.4 Montior vital signs Gentle hydration with LR 75 ml/hr (2) Bilateral edema of lower extremity: Onset Date: ~03/2024 Code(s): R60.0 - Localized edema Status: Acute Assessment and Plan: Echocardiogram 05/03/2024: Summary 1. Complete two-dimensional, color flow and Doppler transthoracic echocardiogram is performed. 2. Left ventricular chamber dimension is normal. 3. Left ventricular systolic function is normal, estimated at 60-65%. 4. There is mild concentric increased left ventricular wall thickness. 5. The left ventricular diastolic function is grade III diastolic dysfunction. 6. E/e' 13 is mildly elevated. 7. Left atrial chamber dimension is severely enlarged. 8. There is mild aortic valve sclerosis. 9. There is mild mitral valve regurgitation. 10. There is mild tricuspid valve regurgitation. 11. Mild pulmonary hypertension, estimated pulmonary arterial systolic pressure is 40 mmHg. 12. There is trace pulmonic regurgitation. (3) Chronic atrial fibrillation: Code(s): I48.20 - Chronic atrial fibrillation, unspecified Status: Acute Assessment and Plan: Monitor telemetry Continue Sotolol Continue Xarelto (4) Chronic anticoagulation: Code(s): Z79.01 - senior care (current) use of anticoagulants Status: Acute Assessment and Plan: Continue Xarelto (5) Chronic obstructive pulmonary disease: Qualifiers: COPD type: unspecified COPD Qualified Code(s): J44.9 - Chronic obstructive pulmonary disease, unspecified Code(s): J44.9 - Chronic obstructive pulmonary disease, unspecified Status: Acute Assessment and Plan: Oxygen titration PRN Monitor vital signs (6) Hypertension: Code(s): I10 - Essential (primary) hypertension Status: Acute Assessment and Plan: Monitor vital signs-current blood pressure 124/66 Hold Ramipril for now Time Spent With Patient Time with patient: 15 - 25 minutes Subjective Date/time seen: 05/03/24 1000 Review of Systems Review of Systems: All systems reviewed & are unremarkable except as noted in HPI and below Constitutional: Constitutional: Reports as per HPI and Reports no additional constitutional complaints Respiratory: Comments: Denies any SOB at this time. Exam Narrative: Pt is alert and oriented x 3 and denies any current complaints. Appears in no acute distress. Pleasant affect. Const: General: comfortable and no acute distress HENMT: Face/Nose/Sinus: Normal nares present Mouth: Yes moist mucous membranes Eyes: General: appearance normal, both eyes and all related structures Sclera: sclerae normal Pupils: Equal, round and reactive pupils present EOM: EOMs intact bilaterally Neck: Neck: supple Resp: Effort & Inspection: normal respiratory effort Auscultation: clear to auscultation bilaterally and diminished lung sounds (diminished to the bilateral bases) bilateral Cardio: Rate: regular rate Rhythm: regular rhythm GI: Other: Abdomen is soft, nontender to palpation with bowel sounds present x 4 quadrants. Skin: General skin exam: normal color and no rashes or lesions noted Other: Brisk capillary refill. Skin warm, dry, and pink Neuro: Speech: normal speech Motor exam (neuro): Motor abnormalites present Other: Pt is alert and oriented x 3 Extrem: General: pedal edema (+1 pitting) bilat
[2024-05-03] MEDS: RIVAROXABAN 15 MG TABLET PO (16:52)
--- NOTE | 2024-05-03 20:40 | ECHO_ITS ---
Patient Info Name: Michelle James Age: 84 years : 1940 Gender: Female Ht: 62 in Wt: 135 lbs BSA: 1.65 m2 HR: 75 bpm BP: 124 / 66 mmHg Heart Rhythm: Indeterminant Technical Quality: Good Exam Date: 05/03/2024 8:53 AM Exam Location: Echo Lab Patient Status: Inpatient Admit Date: 05/02/2024 Staff Ordering Physician: Juliana Fernandes PA-C [place]: Kym Villalba RDCS Attending Provider: Ke Loja MD Referring Physician: Dom MEDEL; Exam Type: CA echo doppler color flow Study Info Indications - loer extremity edema, htn, a fib Complete two-dimensional, color flow and Doppler transthoracic echocardiogram is performed. Summary 1. Complete two-dimensional, color flow and Doppler transthoracic echocardiogram is performed. 2. Left ventricular chamber dimension is normal. 3. Left ventricular systolic function is normal, estimated at 60-65%. 4. There is mild concentric increased left ventricular wall thickness. 5. The left ventricular diastolic function is grade III diastolic dysfunction. 6. E/e' 13 is mildly elevated. 7. Left atrial chamber dimension is severely enlarged. 8. There is mild aortic valve sclerosis. 9. There is mild mitral valve regurgitation. 10. There is mild tricuspid valve regurgitation. 11. Mild pulmonary hypertension, estimated pulmonary arterial systolic pressure is 40 mmHg. 12. There is trace pulmonic regurgitation. Left Ventricle E/e' 13 is mildly elevated. Left ventricular chamber dimension is normal. Left ventricular systolic function is normal, estimated at 60-65%. There is mild concentric increased left ventricular wall thickness. The left ventricular diastolic function is grade III diastolic dysfunction. Right Ventricle Right ventricular systolic function is normal and with normal TAPSE 2.7 cm. Right ventricular chamber dimension is normal. Left Atria Left atrial chamber dimension is severely enlarged. Right Atria Right atrial chamber dimension is normal. Aortic Valve The aortic valve is trileaflet. There is mild aortic valve sclerosis. There is no aortic valve stenosis. There is no aortic valve regurgitation. Pulmonic Valve There is trace pulmonic regurgitation. Mitral Valve There is no mitral valve stenosis. There is mild mitral valve regurgitation. Tricuspid Valve There is mild tricuspid valve regurgitation. Mild pulmonary hypertension, estimated pulmonary arterial systolic pressure is 40 mmHg. Pericardium/Pleural There is no pericardial effusion. Inferior Vena Cava Normal inferior vena cava with >50% collapse upon inspiration consistent with normal right atrial pressure, 5 mmHg. Aorta The aortic root size at the sinus of Valsalva is normal. Left Ventricular Outflow Tract Name Value Normal LVOT 2D LVOT Diameter 2.0 cm LVOT Doppler LVOT Peak Gradient 2 mmHg LVOT Mean Gradient 1 mmHg LVOT VTI 16 cm LVOT VTI/AV VTI Ratio 0.7 LVOT Stroke Volume 54 ml LVOT CO 4.8 l/min LVOT CI 2.9 l/min/m2 Pulm
[2024-05-04] VITALS (8 sets, daily range): BP systolic 104–144; BP diastolic 47–60; PULSE 58–68; RESP 16–19; TEMP 36.8–36.9; O2SAT 98–100
[2024-05-04 08:04] LABS: Basophils Percent Auto 0.6 % (0.2-1.2); Eosinophils Absolute Auto 0.2 K/mm3 (0-0.3); Eosinophils Percent Auto 3.1 % (0-4.4); Hematocrit 32.5 % (37.0-47.0); Hemoglobin 10.8 g/dL (12.0-15.0); Immature Granulocyte Absolute 0.02 K/mm3 (0.00-0.031); Immature Granulocyte Percent A 0.4 % (0-0.5); Lymphocytes Absolute Auto 1.38 K/mm3 (0.9-3.2); Lymphocytes Percent Auto 28.7 % (18.3-44.2); Mean Corpuscular HGB Conc 33.2 g/dl (32-36); Mean Corpuscular Volume 99.4 fl (80-100); Mean Platelet Volume 9.6 fl (7.4-10.4); Monocytes Absolute Auto 0.5 K/mm3 (0.1-0.6); Monocytes Percent Auto 9.8 % (2.6-8.5); Neutrophils Absolute Auto 2.8 K/mm3 (1.3-6.7); Neutrophils Percent Auto 57.4 % (45.5-73.1); Platelet Count Result 181 k/mm3 (150-375); Red Blood Count 3.27 M/mm3 (4.2-5.4); Red Cell Distribution Width 13.4 % (11.5-14.5); White Blood Count 4.8 K/mm3 (4.5-10.0)
[2024-05-04 08:22] LABS: Anion Gap 7 mmol/L (4-12); Blood Urea Nitrogen 25 mg/dL (7-17); Calcium 8.8 mg/dL (8.4-10.2); Carbon Dioxide 26 mmol/L (22-30); Chloride 108 mmol/L (98-107); Estimated CRCL calculation 26 ml/min; Estimated Glomerular Filt Rate 39; Glucose 94 mg/dL (65-110); Potassium 3.9 mmol/L (3.4-5.0); Sodium 141 mmol/L (137-145)
[2024-05-04] MEDS: SOTALOL HCL 40 MG TABLET PO (08:48)
[2024-05-04] MEDS: PSYLLIUM POWDER PACKET 1 PACKET PO (08:48)
[2024-05-04] MEDS: CHOLECALCIFEROL 1,000 UNITS TABLET 1000 UNITS PO (08:48)
--- NOTE | 2024-05-04 13:18 | PM.DS ---
DS: Admitting Diagnosis Discharge Date 05/04/2024 Admitting Diagnosis ALLISON DS: Discharge Diagnosis Discharge Diagnosis (1) Acute on chronic kidney failure: Qualifiers: Acute renal failure type: unspecified Chronic kidney disease stage: unspecified stage Qualified Code(s): N17.9 - Acute kidney failure, unspecified; N18.9 - Chronic kidney disease, unspecified Code(s): N17.9 - Acute kidney failure, unspecified; N18.9 - Chronic kidney disease, unspecified Status: Acute Assessment and Plan: Baseline kidney function appears BUN 22-26 with creat. 1.10 on her home dose of lasix 20 mg qd. Today BUN 25 and creat 1.3. Will advise low sodium diet and DOROTHEA hose while awake. DS: Summary Hospital Course Reason for hospitalization: ALLISON Increased lower extremity edema Hospital Course: This is a pleasant 84-year-old female with chronic atrial fibrillation on anticoagulation, hypertension, and chronic kidney disease who presented to the emergency department for evaluation of lower extremity edema. She is a fair historian and seems to have some short-term memory loss and assets from the following history is obtained via a review of her EMR. She saw Dr. Lamas in the office on 03/28/2024 with complaints of bilateral lower extremity swelling for about a week or so. She was prescribed furosemide 20 mg and was seen in follow-up 5 days thereafter at which time she stated the swelling had not improved. Furosemide dose was doubled and she was also started on potassium supplementation. She began to monitor her salt intake and started to notice improvement in the swelling at follow-up appointment 2 weeks later. Creatinine bumped on labs and furosemide does was cut in half. Unfortunately her swelling is worse and legs are now weeping. She admits that she is very sedentary with dependent legs. She has no known history of congestive heart failure, obstructive sleep apnea, or deep venous thrombosis. She also denies fever, chills, sweats, chest pain, palpitations, orthopnea, paroxysmal nocturnal dyspnea, nausea, vomiting, and calf pain. She has not noticed a change in urine output. In the ED: She was afebrile on arrival. Blood pressure has been as low as 99/63. Labs were significant for a WBC count of 5.5, hemoglobin 11.7, INR 1.7, BUN 42, creatinine 1.70, proBNP 1370. Chest x-ray showed peribronchial thickening without focal infiltrate or effusion. She is being admitted in this setting for evaluation of acute kidney injury and increasing lower extremity edema. ECHO performed 05/03/2024- Summary 1. Complete two-dimensional, color flow and Doppler transthoracic echocardiogram is performed. 2. Left ventricular chamber dimension is normal. 3. Left ventricular systolic function is normal, estimated at 60-65%. 4. There is mild concentric increased left ventricular wall thickness. 5. The left ventricular diastolic function is grade III diastolic dysfunction. 6. E/e' 13 is mildly elevated. 7. Left atrial chamber dimension is severely enlarged. 8. There is mild aortic valve sclerosis. 9. There is mild mitral valve regurgitation. 10. There is mild tricuspid valve regurgitation. 11. Mild pulmonary hypertension, estimated pulmonary arterial systolic pressure is 40 mmHg. 12. There is trace pulmonic regurgitation. It appears pt's baseline BUN/creatinine is 22-26/1.10 and today 25/1.3 respectively. No further weeping of lower extremities and minimal edema remains with her home dose of lasix and DOROTHEA hose. Status at Discharge Cognitive/behavioral status at discharge: Pt is alert and oriented x 4 and appears in no acute distress Functional status at discharge: independent ambulation Overall status at discharge: patient is back to baseline Time Spent with Patient Time attestation: Total time spent providing and/or coordinating discharge services: Time spent: Less than 30 minutes Specific discharge activities: Discussed low sodium, heart
== END 2024-05-04 15:08 | DRG 683 ==
LOC: ANHED 19:10 → ANH2MED 19:48
PROVIDERS: Physician Assistant; Admitting Provider Internal Medicine; Emergency Provider Preventive Medicine Aerospace Medicine; PCP Family Medicine; Visit Provider Nurse Practitioner Family
DX: N17.9 Acute kidney failure, unspecified (principal); I48.20 Chronic atrial fibrillation, unspecified; I12.9 Hypertensive chronic kidney disease with stage 1 through stage 4 chronic kidney disease, or unspecified chronic kidney disease; J44.9 Chronic obstructive pulmonary disease, unspecified; N18.30 Chronic kidney disease, stage 3 unspecified; E78.00 Pure hypercholesterolemia, unspecified; Z66 Do not resuscitate; Z96.651 Presence of right artificial knee joint; Z87.891 Personal history of nicotine dependence; Z79.01 Long term (current) use of anticoagulants; Z90.49 Acquired absence of other specified parts of digestive tract; Z85.820 Personal history of malignant melanoma of skin
CPT/HCPCS: 36415; 71045; 76775; 80048; 80053; 81001; 83735; 83880; 84443; 85025; 85610; 85730; 87086; 93306; 93970; 97161; 99285; A9270; G0378; J7120